=== PATIENT | female | born 2000 | race American Indian/Alaskan Native ===

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

== ENCOUNTER 2020-05-17 03:08 | Outpatient (CLI) | payer MEDICAID ==
[2020-05-17 04:50] VITALS: BP 119/79
== END 2020-05-17 05:25 | disposition home or self-care (01) ==
LOC: TRG 03:08 → APU 03:48 → TRG 05:25
PROVIDERS: ATTEND Obstetrics & Gynecology
DX: O46.8X3 Other antepartum hemorrhage, third trimester (principal); Z3A.39 39 weeks gestation of pregnancy
CPT/HCPCS: 59025

== ENCOUNTER 2020-12-02 21:01 | Emergency (ER) | payer MEDICAID ==
[2020-12-03 00:29] VITALS: BP 142/93
[2020-12-03 01:42] LABS: Alanine Aminotransferase 11 units/L (7-56); Albumin 3.9 g/dL (3.9-5); Blood Urea Nitrogen 8 mg/dL (7-17); Calcium 9.1 mg/dL (8.4-10.2); Hemolysis Index 15
[2020-12-03 01:45] LABS: BUN/Creatinine Ratio 13
[2020-12-03 01:50] LABS: Basophils # (Auto) 0.1 K/mm3 (0.0-0.1); Hematocrit 36.5 % (30.3-42.9); Hemoglobin 12.3 gm/dl (10.1-14.3); Lymphocytes # (Auto) 4.2 K/mm3 (1.2-5.4); Lymphocytes % (Auto) 40.2 % (13.4-35.0); Mean Corpuscular HGB Conc 34 % (30-34); Mean Corpuscular Volume 85 fl (79-97); Monocytes % (Auto) 5.6 % (0.0-7.3); Platelet Count 356 K/mm3 (140-440); Red Blood Count 4.31 M/mm3 (3.65-5.03)
[2020-12-03 01:52] LABS: Eosinophils # (Auto) 0.2 K/mm3 (0.0-0.4); Eosinophils % (Auto) 1.5 % (0.0-4.3); Monocytes # (Auto) 0.6 K/mm3 (0.0-0.8); Red Cell Distribution Width 15.4 % (13.2-15.2)
[2020-12-03 05:08] LABS: HCG Qualitative,Urine Negative (Negative)
[2020-12-03 05:15] LABS: Bacteria,Urine 1+ /HPF (Negative); Bilirubin,Urine NEG (Negative); Blood,Urine NEG (Negative); Color,Urine Yellow (Yellow); Mucus,Urine FEW /HPF; Protein,Urine <15 mg/dL mg/dL (Negative)
--- NOTE | 2020-12-03 08:09 | Emergency Department Report ---
ED Abdominal Pain HPI - General Chief Complaint: Abdominal Pain Stated Complaint: HEADACHE/DIZZY/SOB/STOMACH PAIN Time Seen by Provider: 12/03/20 08:04 Source: patient Mode of arrival: Ambulatory Limitations: No Limitations - History of Present Illness Initial Comments: Patient is 20 years old female with no significant past medical history. Patient presented to the ER complaining of diffuse, crampy abdominal pain with no radiation. Patient stated that pain started 5 days ago associated with nausea, vomiting and diarrhea. Patient stated that her symptoms started after eating. Patient is thinking this is most likely food poisoning. Patient denied any fever or chills. No vaginal bleeding or vaginal discharge. No dysuria. MD Complaint: abdominal pain -: days(s) (5) Location: diffuse Radiation: none Migration to: no migration Severity: mild Severity scale (0 -10): 2 Quality: cramping Consistency: intermittent Context: possible food poisoning Associated Symptoms: nausea, vomiting, diarrhea. denies: fever - Related Data Home Medications Medication Instructions Recorded Confirmed Last Taken Vit-Fe Fumar-FA [ 1 tab PO DAILY 05/17/20 05/17/20 Unknown Vitamin] Allergies Allergy/AdvReac Type Severity Reaction Status Date / Time No Known Allergies Allergy Verified 08/27/18 16:12 ED Review of Systems ROS: Stated complaint: HEADACHE/DIZZY/SOB/STOMACH PAIN Other details as noted in HPI Comment: All other systems reviewed and negative Constitutional: denies: chills, fever Respiratory: denies: cough, shortness of breath, SOB with exertion Cardiovascular: denies: chest pain, palpitations Gastrointestinal: abdominal pain, nausea, vomiting, diarrhea. denies: constipation, hematemesis, melena, hematochezia Genitourinary: denies: urgency, dysuria, frequency, hematuria, discharge Musculoskeletal: denies: back pain Neurological: denies: headache, weakness, numbness, paresthesias, confusion ED Past Medical Hx - Past Medical History Previous Medical History?: No Hx Hypertension: No Hx Congestive Heart Failure: No Hx Diabetes: No Hx Deep Vein Thrombosis: No Hx Renal Disease: No Hx Sickle Cell Disease: No Hx Seizures: No Hx Asthma: No Hx COPD: No Hx HIV: No - Surgical History Past Surgical History?: No - Social History Smoking Status: Never Smoker Substance Use Type: None - Medications Home Medications: Home Medications Medication Instructions Recorded Confirmed Last Taken Type Vit-Fe Fumar-FA [ 1 tab PO DAILY 05/17/20 05/17/20 Unknown History Vitamin] ED Physical Exam - General Limitations: No Limitations General appearance: alert, in no apparent distress - Head Head exam: Present: atraumatic, normocephalic, normal inspection - Eye Eye exam: Present: normal appearance, PERRL - ENT ENT exam: Present: normal exam, normal orophraynx, mucous membranes moist - Neck Neck exam: Present: normal inspection, full ROM. Absent: tenderness, meningismus - Respiratory Respiratory exam: Present: normal lung sounds bilaterally - Cardiovascular Cardiovascular Exam: Present: regular rate, normal rhythm, normal heart sounds - GI/Abdominal GI/Abdominal exam: Present: soft, normal bowel sounds. Absent: distended, tenderness, guarding, rebound, rigid, organomegaly, mass, bruit, pulsatile mass, hernia - Extremities Exam Extremities exam: Present: normal inspection, full ROM, normal capillary refill. Absent: tenderness - Back Exam Back exam: Present: normal inspection, full ROM. Absent: CVA tenderness (R), CVA tenderness (L) - Neurological Exam Neurological exam: Present: alert, oriented X3, CN II-XII intact, normal gait, reflexes normal. Absent: motor sensory deficit - Psychiatric Psychiatric exam: Present: normal mood - Skin Skin exam: Present: warm, intact, normal color ED Course Vital Signs 12/03/20 00:25 Temperature 99.1 F Pulse Rate 76 Respiratory 18 Rate Blood Pressure 142/93 [Left] O2 Sat by Pulse 100 Oximetry ED Medical Decision Making - Lab Data Result diagrams: 12/03/20 00:37 12/03/20 00:37 - Medical Decision Making Patient is 20 years old female with no significant past medical history. Patient presented to the ER complaining of diffuse, crampy abdominal pain with no radiation. Patient stated that pain started 5 days ago associated with nausea, vomiting and diarrhea. Patient stated that her symptoms started after eating. Patient is thinking this is most likely food poisoning. Patient denied any fever or chills. No vaginal bleeding or vaginal discharge. No dysuria. Patient remained stable in the ER with stable vital sign. Labs reviewed and is unremarkable. Patient symptoms most likely related to food poisoning. Patient given Zofran and advised to follow-up with her primary care physician in the next 2 to 3 days in the next 2 to 3 days and to return to the ER if she develop any new symptoms. Critical care attestation.: If time is entered above; I have spent that time in minutes in the direct care of this critically ill patient, excluding procedure time. ED Disposition Clinical Impression: Acute abdominal pain, Acute nausea with nonbilious vomiting Disposition: HOME / SELF CARE / HOMELESS Is pt being admited?: No Condition: Stable Instructions: Abdominal Pain (ED), Nausea and Vomiting, Adult, Abdominal Pain, Adult Referrals: PRIMARY CARE,MD [Primary Care Provider] - 3-5 Days Forms: Work/School Release Form(ED)
== END 2020-12-03 10:05 | disposition home or self-care (01) ==
LOC: ED 21:01
DX: R10.84 Generalized abdominal pain (principal); R11.2 Nausea with vomiting, unspecified; R51.9 Headache, unspecified
CPT/HCPCS: 36415; 80053; 81001; 81025; 85025; 99283